=== PATIENT | male | born 1965 | race American Indian/Alaskan Native ===

== ENCOUNTER 2018-02-15 16:52 | Emergency (ER) | payer MEDICARE ==
[2018-02-15] MEDS ORDERED: ASPIRIN PO ONE (17:23)
[2018-02-15 18:01] LABS: Hematocrit 27.7 % (35.5-45.6); Hemoglobin 8.6 gm/dl (11.8-15.2); Mean Corpuscular HGB Conc 31 % (32-34)
[2018-02-15 18:08] LABS: Mean Corpuscular Hemoglobin 19 pg (28-32); Mean Corpuscular Volume 62 fl (84-94)
[2018-02-15 18:20] LABS: Calcium 8.6 mg/dL (8.4-10.2)
[2018-02-15] MEDS ORDERED: CATAPRES PO ONE (18:29)
[2018-02-15] MEDS: APRESOLINE IV ONE ×2 (18:33→21:25)
[2018-02-15 18:53] LABS: Chol/HDL Ratio 2.21 %
[2018-02-15 18:56] LABS: Total Cells Counted 100
[2018-02-15 18:57] LABS: Anisocytosis 1+
[2018-02-15 18:58] LABS: Ovalocytes 1+; Poikilocytosis 2+; Schistocytes 1+
[2018-02-15 19:00] LABS: Hypochromasia 2+; Target Cells 1+
[2018-02-15 19:01] LABS: Giant Platelets Few; Large Platelets Few
[2018-02-15 19:02] LABS: Platelet Estimate Consistent w Auto
[2018-02-15 19:07] LABS: Platelet Count 126 K/mm3 (140-440)
--- NOTE | 2018-02-15 19:30 | Emergency Department Report ---
HPI - General Chief Complaint: High BP Time Seen by Provider: 02/15/18 17:33 - HPI HPI: The patient is a 52-year-old male presents for evaluation of bleeding from dialysis's site and elevated blood pressure. The patient states that passing one hour prior to arrival he developed bleeding from his left dialysis fistula after completion of dialysis. He states that the bleeding was moderate in severity, constant for minutes, improved with pressure dressing. He denies trauma to the arm, pain, swelling, color change, chest pain, dyspnea, dizziness , headache, paresthesia, otherwise motor deficit, or focal neurological deficit. ED Past Medical Hx - Past Medical History Previous Medical History?: Yes Hx Hypertension: Yes Hx Diabetes: Yes Hx Renal Disease: Yes (dialysis) - Surgical History Past Surgical History?: Yes Additional Surgical History: hernia - Social History Smoking Status: Never Smoker Substance Use Type: None ED Review of Systems ROS: Stated complaint: POST DIALYSIS BLEED Other details as noted in HPI Constitutional: denies: fever ENT: denies: throat or neck pain Respiratory: denies: cough, shortness of breath Cardiovascular: denies: chest pain Endocrine: denies unexplained weight loss or gain Gastrointestinal: denies: abdominal pain, nausea Genitourinary: denies: dysuria Musculoskeletal: denies: leg swelling Skin: denies: rash Neurological: denies: headache Hematological/Lymphatic: denies: easy bleeding or easy bruising Psych: denies sadness or hopelessness Physical Exam - Physical Exam Vital Signs: Vital Signs 02/15/18 02/15/18 02/15/18 17:16 18:33 19:16 Temperature 98 F Pulse Rate 84 65 80 Respiratory 16 16 Rate Blood Pressure 225/116 205/107 Blood Pressure 190/106 [Left] O2 Sat by Pulse 96 96 Oximetry Physical Exam: General: well-nourished, well-developed, no acute distress Head: Normocephalic, atraumatic Eyes: normal sclera ENT: Mucous membranes are pink and moist Neck: trachea midline, neck supple, No neck stiffness, no cervical adenopathy Respiratory: Breath sounds equal bilaterally, no wheezing, rales, or rhonchi Cardio: S1 and S2 present, no murmurs, rubs, gallops, capillary refill is brisk Abdomen: Normoactive bowel sounds, soft abdomen, no rigidity, no guarding or rebound tenderness Chest WALL/Back: No tenderness to palpation of the chest wall, no CVA tenderness with percussion Musc: Pressure dressing to left arm present, dressing clean and dry and intact, no bleeding surrounding dressing Skin: No rash Neuro: no facial drooping, normal speech Psych: Normal affect ED Course Vital Signs 02/15/18 02/15/18 02/15/18 17:16 18:33 19:16 Temperature 98 F Pulse Rate 84 65 80 Respiratory 16 16 Rate Blood Pressure 225/116 205/107 Blood Pressure 190/106 [Left] O2 Sat by Pulse 96 96 Oximetry ED Medical Decision Making - Lab Data Result diagrams: 02/15/18 17:42 02/15/18 17:42 - Medical Decision Making The patient was seen and examined by myself. The patient is placed on a logistics analytics manager and continuous pulse ox. On initial evaluation, the patient was found to be in no distress. Evaluation orders were placed. The patient is given a tablet of clinic for his elevated blood pressure. There was also reassuring including normal potassium level. The patient reevaluated and found to remain with significantly elevated blood pressure. IV hydralazine was ordered for the patient. The patient is given IV hydralazine for elevated blood pressure. On reexamination the patient's blood pressure was found to decrease outside of range concerning for hypertensive emergency. The patient's pressure dressing was removed and the patient was found to have resolution of bleeding from dialysis fistula site. The patient is stable for discharge with outpatient follow-up. The patient is given follow-up and return instructions. The patient expressed understanding and agreed with the plan. The patient is discharged in stable condition. Critical care attestation.: If time is entered above; I have spent that time in minutes in the direct care of this critically ill patient, excluding procedure time. ED Disposition Clinical Impression: Hypertensive urgency, ESRD (end stage renal disease) on dialysis Hemorrhage of arteriovenous fistula Qualifiers: Encounter type: initial encounter Qualified Code(s): T82.838A - Hemorrhage due to vascular prosthetic devices, implants and grafts, initial encounter Disposition: - TO HOME OR SELFCARE Is pt being admited?: No Does the pt Need Aspirin: No Condition: Stable Instructions: Hypertension (ED), Hemodialysis (ED), Acute Wound Care (ED) Referrals: PRIMARY CARE, [Primary Care Provider] - 3-5 Days Time of Disposition: 19:30
[2018-02-15] MEDS ORDERED: APRESOLINE ONE (21:19)
[2018-02-15 22:20] VITALS: BP 147/68
== END 2018-02-15 23:08 | disposition home or self-care (01) ==
LOC: ED 16:52
DX: T82.838A Hemorrhage due to vascular prosthetic devices, implants and grafts, initial encounter (principal); E11.22 Type 2 diabetes mellitus with diabetic chronic kidney disease; I12.0 Hypertensive chronic kidney disease with stage 5 chronic kidney disease or end stage renal disease; N18.6 End stage renal disease; I16.0 Hypertensive urgency; Z99.2 Dependence on renal dialysis
CPT/HCPCS: 36415; 80048; 80061; 84484; 85007; 85025; 93005; 93010; 96374; 99284; J0360

== ENCOUNTER 2018-02-26 07:18 | Inpatient (IN) | payer MEDICARE ==
--- NOTE | 2018-02-26 07:36 | Emergency Department Report ---
ED Altered Mental Status HPI - General Chief Complaint: Hypoglycemia Stated Complaint: HIGH BLOOD SUGAR Time Seen by Provider: 02/26/18 07:18 Source: patient, EMS Mode of arrival: Stretcher Limitations: Altered Mental Status - History of Present Illness Initial Comments: She is a 52-year-old male that presents emergency room with complaints of hypoglycemia while at his [place] [facility]. Patient's nurse called EMS due to having a blood sugar of 40. EMS arrived on scene and blood sugar was 29. EMS unable to obtain an IV so oral glucose was given and glucose recheck was at 42. Patient is lethargic but arousable. Patient denies physical complaints. Patient denies chest pain/shortness of breath. Patient denies headache. Patient denies fever and chills. Patient states he is unaware of, units of insulin he was given the night prior. Per patient's medication list patient on 10 units of Lantus daily at bedtime. Medication and past medical history from [place] [facility] reviewed MD Complaint: confusion, decreased responsiveness -: Sudden Severity: mild Consistency of Symptoms: waxing and waning Context: diabetes Associated Symptoms: denies: chest pain, cough, diaphoresis, fever/chills, headaches, loss of appetite, malaise, nausea/vomiting, rash, seizure, shortness of breath, syncope, weakness, foul smelling urine, difficulty walking, diarrhea , incontinence Treatments Prior to Arrival: glucose, other pre-hosp med (glucagon) - Related Data Home Medications Medication Instructions Recorded Confirmed Last Taken Aspirin [Adult Low Dose Aspirin EC] 81 mg PO DAILY 02/26/18 02/26/18 Unknown Carvedilol [Coreg] 12.5 mg PO BID 02/26/18 02/26/18 Unknown Cinacalcet [Sensipar] 30 mg PO DAILY 02/26/18 02/26/18 Unknown Insulin Glargine,Hum.rec.anlog 10 units SUB-Q HS 02/26/18 02/26/18 Unknown [Lantus Solostar] Minoxidil [Loniten] 10 mg PO BID 02/26/18 02/26/18 Unknown Ondansetron [Zofran TAB] 8 mg PO Q8H 02/26/18 02/26/18 Unknown Sevelamer Carbonate [Renvela] 800 mg PO TIDWM 02/26/18 02/26/18 Unknown hydrALAZINE [Apresoline TAB] 100 mg PO TID 02/26/18 02/26/18 Unknown Allergies Allergy/AdvReac Type Severity Reaction Status Date / Time No Known Allergies Allergy Unverified 09/27/13 11:34 ED Review of Systems ROS: Stated complaint: HIGH BLOOD SUGAR Other details as noted in HPI Constitutional: denies: chills, fever Eyes: denies: eye pain, eye discharge, vision change ENT: denies: ear pain, throat pain Respiratory: denies: cough, shortness of breath, wheezing Cardiovascular: denies: chest pain, palpitations Endocrine: no symptoms reported Gastrointestinal: denies: abdominal pain, nausea, diarrhea Genitourinary: denies: urgency, dysuria Musculoskeletal: denies: back pain, joint swelling, arthralgia Skin: denies: rash, lesions Neurological: denies: headache, weakness, paresthesias Psychiatric: denies: anxiety, depression Hematological/Lymphatic: denies: easy bleeding, easy bruising ED Past Medical Hx - Past Medical History Previous Medical History?: Yes Hx Hypertension: Yes Hx Diabetes: Yes Hx Renal Disease: Yes (dialysis) - Surgical History Past Surgical History?: Yes Additional Surgical History: hernia - Family History Family history: no significant - Social History Smoking Status: Never Smoker Substance Use Type: None - Medications Home Medications: Home Medications Medication Instructions Recorded Confirmed Last Taken Type Aspirin [Adult Low Dose Aspirin EC] 81 mg PO DAILY 02/26/18 02/26/18 Unknown History Carvedilol [Coreg] 12.5 mg PO BID 02/26/18 02/26/18 Unknown History Cinacalcet [Sensipar] 30 mg PO DAILY 02/26/18 02/26/18 Unknown History Insulin Glargine,Hum.rec.anlog 10 units SUB-Q HS 02/26/18 02/26/18 Unknown History [Lantus Solostar] Minoxidil [Loniten] 10 mg PO BID 02/26/18 02/26/18 Unknown History Ondansetron [Zofran TAB] 8 mg PO Q8H 02/26/18 02/26/18 Unknown History Sevelamer Carbonate [Renvela] 800 mg PO TIDWM 02/26/18 02/26/18 Unknown History hydrALAZINE [Apresoline TAB] 100 mg PO TID 02/26/18 02/26/18 Unknown History ED Physical Exam - General Limitations: No Limitations General appearance: alert, in no apparent distress, lethargic (but arousable and answers questions appropriately) - Head Head exam: Present: atraumatic, normocephalic - Eye Eye exam: Present: normal appearance - ENT ENT exam: Present: mucous membranes moist - Neck Neck exam: Present: normal inspection - Respiratory Respiratory exam: Present: normal lung sounds bilaterally. Absent: respiratory distress - Cardiovascular Cardiovascular Exam: Present: regular rate, normal rhythm. Absent: systolic murmur, diastolic murmur, rubs, gallop - GI/Abdominal GI/Abdominal exam: Present: soft, normal bowel sounds - Rectal Rectal exam: Present: deferred - Extremities Exam Extremities exam: Present: normal inspection - Back Exam Back exam: Present: normal inspection - Neurological Exam Neurological exam: Present: oriented X3 - Psychiatric Psychiatric exam: Present: normal affect, normal mood - Skin Skin exam: Present: warm, dry, intact, normal color. Absent: rash - Assessment Assessment Interval: Baseline - Level of Consciousness 1a. Level of Consciousness: alert - LOC Questions 1b. LOC Questions: answers correctly - LOC Command 1c. LOC Commands: performs tasks correctly - Best Gaze 2. Best Gaze: normal - Visual 3. Visual: no visual loss - Facial Palsy 4. Facial Palsy: normal symmetrical movement - Motor Arm 5b. Motor Arm Right: no drift 5a. Motor Arm Left: no drift - Motor Leg 6a. Motor Leg Left: no drift 6b. Motor Leg Right: no drift - Limb Ataxia 7. Limb Ataxia: absent - Sensory 8. Sensory: normal - Best Language 9. Best Language: no aphasia - Dysarthria 10. Dysarthria: normal - Extinction and Inattention 11. Extinction/Inattention: no abnormality - Scoring Total Score: 0 Stroke Severity: No Stroke Symptoms ED Course Vital Signs 02/26/18 02/26/18 02/26/18 07:24 07:38 08:00 Temperature 96.8 F L Pulse Rate 78 73 Respiratory 16 16 12 Rate Blood Pressure 155/80 155/80 O2 Sat by Pulse 100 100 100 Oximetry 02/26/18 02/26/18 09:52 10:00 Temperature Pulse Rate 73 Respiratory 9 L Rate Blood Pressure 147/73 163/83 O2 Sat by Pulse 95 97 Oximetry - Reevaluation(s) Reevaluation #1: Right IJ IV access obtained and 1 amp of D50 with given. Patient's blood sugar 15 minutes later 98. We'll continue to monitor patient's glucose and treat when necessary. Patient is awake and alert at this time. 02/26/18 07:34 Reevaluation #2: Pacing answering questions appropriately. Sugar is slowly dropping. We will start D5 half normal saline drip and continue to monitor sugars 02/26/18 08:37 Reevaluation #3: Sugars have stabilized with D5 drip. We'll consult hospitalist for admission. Plan of care discussed with patient. Patient agrees with plan of care. Nephrology will be consulted for dialysis. 02/26/18 09:54 - Consultations Consultation #1: Dr. Cook consulted for admission. Dr. Cook agrees to admission. Hospitalist to assume care. 02/26/18 09:00 Consultation #2: Dr. Bedolla consulted for hemodialysis, agrees to consult and will see patient. 02/26/18 09:55 02/26/18 09:55 - Lab Data Result diagrams: 02/26/18 07:29 02/26/18 07:29 Lab Results 02/26/18 02/26/18 02/26/18 Range/Units 07:24 07:29 07:29 WBC 5.2 (4.5-11.0) K/mm3 RBC 4.52 (3.65-5.03) M/mm3 Hgb 8.9 L (11.8-15.2) gm/dl Hct 28.0 L (35.5-45.6) % MCV 62 L (84-94) fl MCH 20 L (28-32) pg MCHC 32 (32-34) % RDW 24.0 H (13.2-15.2) % Plt Count 148 (140-440) K/mm3 Lymph % (Auto) Chamfering Machine Operator Baso % (Auto) Chamfering Machine Operator Add Manual Diff Complete Total Counted 100 Seg Neutrophils % Chamfering Machine Operator Seg Neuts % (Manual) 83.0 H (40.0-70.0) % Band Neutrophils % 0 % Lymphocytes % (Manual) 9.0 L (13.4-35.0) % Reactive Lymphs % (Man) 0 % Monocytes % (Manual) 7.0 (0.0-7.3) % Eosinophils % (Manual) 0 (0.0-4.3) % Basophils % (Manual) 0 (0.0-1.8) % Metamyelocytes % 0 % Myelocytes % 0 % Promyelocytes % 1.0 % Blast Cells % 0 % Nucleated RBC % Not Reportable Seg Neutrophils # Man 4.3 (1.8-7.7) K/mm3 Band Neutrophils # 0.0 K/mm3 Lymphocytes # (Manual) 0.5 L (1.2-5.4) K/mm3 Abs React Lymphs (Man) 0.0 K/mm3 Monocytes # (Manual) 0.4 (0.0-0.8) K/mm3 Eosinophils # (Manual) 0.0 (0.0-0.4) K/mm3 Basophils # (Manual) 0.0 (0.0-0.1) K/mm3 Metamyelocytes # 0.0 K/mm3 Myelocytes # 0.0 K/mm3 Promyelocytes # 0.1 K/mm3 Blast Cells # 0.0 K/mm3 WBC Morphology Not Reportable Hypersegmented Neuts Not Reportable Hyposegmented Neuts Not Reportable Hypogranular Neuts Not Reportable Smudge Cells Not Reportable Toxic Granulation Not Reportable Toxic Vacuolation Not Reportable Dohle Bodies Not Reportable Pelger-Huet Anomaly Not Reportable Juan Jose Rods Not Reportable Platelet Estimate Consistent w auto Clumped Platelets Not Reportable Plt Clumps, EDTA Not Reportable Large Platelets Not Reportable Giant Platelets Not Reportable Platelet Satelliting Not Reportable Plt Morphology Comment Not Reportable RBC Morphology Not Reportable Dimorphic RBCs Not Reportable Polychromasia Not Reportable Hypochromasia 2+ Poikilocytosis 1+ Anisocytosis 1+ Microcytosis 2+ Macrocytosis Not Reportable Spherocytes Not Reportable Pappenheimer Bodies Not Reportable Sickle Cells Not Reportable Target Cells Few Tear Drop Cells Not Reportable Ovalocytes Few Helmet Cells Not Reportable Centeno-Tenkiller Bodies Not Reportable [place] Rings Not Reportable Donnell Cells Not Reportable Bite Cells Not Reportable Crenated Cell Not Reportable Elliptocytes Few Acanthocytes (Spur) Not Reportable Rouleaux Not Reportable Hemoglobin C Crystals Not Reportable Schistocytes Rare Malaria parasites Not Reportable Jordan Bodies Not Reportable Hem Pathologist Commnt No PT 15.4 H (12.2-14.9) Sec. INR 1.16 H (0.87-1.13) APTT 31.0 (24.2-36.6) Sec. Sodium (137-145) mmol/L Potassium (3.6-5.0) mmol/L Chloride (98-107) mmol/L Carbon Dioxide (22-30) mmol/L Anion Gap mmol/L BUN (9-20) mg/dL Creatinine (0.8-1.5) mg/dL Estimated GFR ml/min BUN/Creatinine Ratio % Glucose (75-100) mg/dL POC Glucose < 40 L (70-105) Lactic Acid (0.7-2.0) mmol/L Calcium (8.4-10.2) mg/dL Total Bilirubin (0.1-1.2) mg/dL AST (5-40) units/L ALT (7-56) units/L Alkaline Phosphatase (35-129) units/L Total Protein (6.3-8.2) g/dL Albumin (3.9-5) g/dL Albumin/Globulin Ratio % 02/26/18 02/26/18 02/26/18 Range/Units 07:29 07:29 07:35 WBC (4.5-11.0) K/mm3 RBC (3.65-5.03) M/mm3 Hgb (11.8-15.2) gm/dl Hct (35.5-45.6) % MCV (84-94) fl MCH (28-32) pg MCHC (32-34) % RDW (13.2-15.2) % Plt Count (140-440) K/mm3 Lymph % (Auto) Baso % (Auto) Add Manual Diff Total Counted Seg Neutrophils % Seg Neuts % (Manual) (40.0-70.0) % Band Neutrophils % % Lymphocytes % (Manual) (13.4-35.0) % Reactive Lymphs % (Man) % Monocytes % (Manual) (0.0-7.3) % Eosinophils % (Manual) (0.0-4.3) % Basophils % (Manual) (0.0-1.8) % Metamyelocytes % % Myelocytes % % Promyelocytes % % Blast Cells % % Nucleated RBC % Seg Neutrophils # Man (1.8-7.7) K/mm3 Band Neutrophils # K/mm3 Lymphocytes # (Manual) (1.2-5.4) K/mm3 Abs React Lymphs (Man) K/mm3 Monocytes # (Manual) (0.0-0.8) K/mm3 Eosinophils # (Manual) (0.0-0.4) K/mm3 Basophils # (Manual) (0.0-0.1) K/mm3 Metamyelocytes # K/mm3 Myelocytes # K/mm3 Promyelocytes # K/mm3 Blast Cells # K/mm3 WBC Morphology Hypersegmented Neuts Hyposegmented Neuts Hypogranular Neuts Smudge Cells Toxic Granulation Toxic Vacuolation Dohle Bodies Pelger-Huet Anomaly Juan Jose Rods Platelet Estimate Clumped Platelets Plt Clumps, EDTA Large Platelets Giant Platelets Platelet Satelliting Plt Morphology Comment RBC Morphology Dimorphic RBCs Polychromasia Hypochromasia Poikilocytosis Anisocytosis Microcytosis Macrocytosis Spherocytes Pappenheimer Bodies Sickle Cells Target Cells Tear Drop Cells Ovalocytes Helmet Cells Centeno-Tenkiller Bodies [place] Rings Warren Cells Bite Cells Crenated Cell Elliptocytes Acanthocytes (Spur) Rouleaux Hemoglobin C Crystals Schistocytes Malaria parasites Jordan Bodies Hem Pathologist Commnt PT (12.2-14.9) Sec. INR (0.87-1.13) APTT (24.2-36.6) Sec. Sodium 132 L (137-145) mmol/L Potassium 5.5 H (3.6-5.0) mmol/L Chloride 93.1 L (98-107) mmol/L Carbon Dioxide 26 (22-30) mmol/L Anion Gap 18 mmol/L BUN 51 H (9-20) mg/dL Creatinine 9.6 H (0.8-1.5) mg/dL Estimated GFR 7 ml/min BUN/Creatinine Ratio 5 % Glucose 44 L (75-100) mg/dL POC Glucose 98 (70-105) Lactic Acid 0.80 (0.7-2.0) mmol/L Calcium 8.7 (8.4-10.2) mg/dL Total Bilirubin 0.70 (0.1-1.2) mg/dL AST 16 (5-40) units/L ALT 14 (7-56) units/L Alkaline Phosphatase 92 (35-129) units/L Total Protein 7.4 (6.3-8.2) g/dL Albumin 4.0 (3.9-5) g/dL Albumin/Globulin Ratio 1.2 % 02/26/18 02/26/18 Range/Units 08:05 08:35 WBC (4.5-11.0) K/mm3 RBC (3.65-5.03) M/mm3 Hgb (11.8-15.2) gm/dl Hct (35.5-45.6) % MCV (84-94) fl MCH (28-32) pg MCHC (32-34) % RDW (13.2-15.2) % Plt Count (140-440) K/mm3 Lymph % (Auto) Baso % (Auto) Add Manual Diff Total Counted Seg Neutrophils % Seg Neuts % (Manual) (40.0-70.0) % Band Neutrophils % % Lymphocytes % (Manual) (13.4-35.0) % Reactive Lymphs % (Man) % Monocytes % (Manual) (0.0-7.3) % Eosinophils % (Manual) (0.0-4.3) % Basophils % (Manual) (0.0-1.8) % Metamyelocytes % % Myelocytes % % Promyelocytes % % Blast Cells % % Nucleated RBC % Seg Neutrophils # Man (1.8-7.7) K/mm3 Band Neutrophils # K/mm3 Lymphocytes # (Manual) (1.2-5.4) K/mm3 Abs React Lymphs (Man) K/mm3 Monocytes # (Manual) (0.0-0.8) K/mm3 Eosinophils # (Manual) (0.0-0.4) K/mm3 Basophils # (Manual) (0.0-0.1) K/mm3 Metamyelocytes # K/mm3 Myelocytes # K/mm3 Promyelocytes # K/mm3 Blast Cells # K/mm3 WBC Morphology Hypersegmented Neuts Hyposegmented Neuts Hypogranular Neuts Smudge Cells Toxic Granulation Toxic Vacuolation Dohle Bodies Pelger-Huet Anomaly Juan Jose Rods Platelet Estimate Clumped Platelets Plt Clumps, EDTA Large Platelets Giant Platelets Platelet Satelliting Plt Morphology Comment RBC Morphology Dimorphic RBCs Polychromasia Hypochromasia Poikilocytosis Anisocytosis Microcytosis Macrocytosis Spherocytes Pappenheimer Bodies Sickle Cells Target Cells Tear Drop Cells Ovalocytes Helmet Cells Centeno-Tenkiller Bodies [place] Rings Donnell Cells Bite Cells Crenated Cell Elliptocytes Acanthocytes (Spur) Rouleaux Hemoglobin C Crystals Schistocytes Malaria parasites Jordan Bodies Hem Pathologist Commnt PT (12.2-14.9) Sec. INR (0.87-1.13) APTT (24.2-36.6) Sec. Sodium (137-145) mmol/L Potassium (3.6-5.0) mmol/L Chloride (98-107) mmol/L Carbon Dioxide (22-30) mmol/L Anion Gap mmol/L BUN (9-20) mg/dL Creatinine (0.8-1.5) mg/dL Estimated GFR ml/min BUN/Creatinine Ratio % Glucose (75-100) mg/dL POC Glucose 90 84 (70-105) Lactic Acid (0.7-2.0) mmol/L Calcium (8.4-10.2) mg/dL Total Bilirubin (0.1-1.2) mg/dL AST (5-40) units/L ALT (7-56) units/L Alkaline Phosphatase (35-129) units/L Total Protein (6.3-8.2) g/dL Albumin (3.9-5) g/dL Albumin/Globulin Ratio % - Medical Decision Making She has a 52-year-old male presents to emergency with hypoglycemia due to unknown cause. Patient is found to have low blood sugar and was treated with D50 and a D5 half-normal saline drip sugars have stabilized. Patient's labs were significant for high creatinine and elevated potassium. Patient will be admitted to the hospitalist service for further evaluation and treatment as well as Dr. Bedolla master fire control technician was consulted for end-stage renal disease and hemodialysis. - Differential Diagnosis med reaction. Hypoglycemia. Miss dosing of insulin. Missed meals. Critical Care Time: Yes Critical care attestation.: If time is entered above; I have spent that time in minutes in the direct care of this critically ill patient, excluding procedure time. Critical Care Time: 40 minutes for cc time ED Disposition Clinical Impression: Hypoglycemia, Lethargy, ESRD (end stage renal disease) on dialysis, Hyperkalemia Disposition: OP ADMIT IP TO THIS HOSP Is pt being admited?: Yes Does the pt Need Aspirin: No Condition: Critical Time of Disposition: 09:56
[2018-02-26] MEDS ORDERED: D50W (25GM) Syringe IV ONE (07:37)
[2018-02-26 07:40] LABS: Hemoglobin 8.9 gm/dl (11.8-15.2); Mean Corpuscular HGB Conc 32 % (32-34); Platelet Count 148 K/mm3 (140-440); Red Blood Count 4.52 M/mm3 (3.65-5.03)
[2018-02-26 07:44] LABS: Mean Corpuscular Hemoglobin 20 pg (28-32); Mean Corpuscular Volume 62 fl (84-94)
[2018-02-26 07:51] LABS: INR 1.16 (0.87-1.13)
[2018-02-26 07:54] LABS: Calcium 8.7 mg/dL (8.4-10.2)
[2018-02-26] MEDS ORDERED: D5/0.45NS 1,000 ML IV ONE (08:39)
[2018-02-26] MEDS ORDERED: D5/0.45NS 1,000 ML IV SCH (09:00)
[2018-02-26 09:14] LABS: Anisocytosis 1+; Basophils % (Manual) 0 % (0.0-1.8); Eosinophils % (Manual) 0 % (0.0-4.3); Poikilocytosis 1+; Promyelocytes # (Manual) 0.1 K/mm3; Total Cells Counted 100
[2018-02-26 09:15] LABS: Hypochromasia 2+; Ovalocytes Few; Platelet Estimate Consistent w Auto; Schistocytes Rare; Target Cells Few
--- NOTE | 2018-02-26 12:15 | Consultation ---
History of Present Illness - Reason for Consult Consult date: 02/26/18 end stage renal disease - History of Present Illness Mr. Nunez is a 52yo with ESRD on HD MWF who presented to the ED from his SNF w/ AMS. Blood sugar was 29 in field - he was given glucose tablet due to lack of IV access. Upon arrival to the ED, initial glucose was <40. He receives Lantus at night. He has been admitted for further evaluation and management. Nephrology consulted for management of ESRD. Past History Past Medical History: diabetes, ESRD, hypertension Past Surgical History: Other (KAREEM TRUONG) Social history: other (Resides at [facility]) Family history: no significant family history Medications and Allergies Allergies Allergy/AdvReac Type Severity Reaction Status Date / Time No Known Allergies Allergy Unverified 09/27/13 11:34 Home Medications Medication Instructions Recorded Confirmed Last Taken Type Aspirin [Adult Low Dose Aspirin EC] 81 mg PO DAILY 02/26/18 02/26/18 Unknown History Carvedilol [Coreg] 12.5 mg PO BID 02/26/18 02/26/18 Unknown History Cinacalcet [Sensipar] 30 mg PO DAILY 02/26/18 02/26/18 Unknown History Insulin Glargine,Hum.rec.anlog 10 units SUB-Q HS 02/26/18 02/26/18 Unknown History [Lantus Solostar] Minoxidil [Loniten] 10 mg PO BID 02/26/18 02/26/18 Unknown History Ondansetron [Zofran TAB] 8 mg PO Q8H 02/26/18 02/26/18 Unknown History Sevelamer Carbonate [Renvela] 800 mg PO TIDWM 02/26/18 02/26/18 Unknown History hydrALAZINE [Apresoline TAB] 100 mg PO TID 02/26/18 02/26/18 Unknown History Active Meds: Active Medications Dextrose/Sodium Chloride (D5/0.45ns) 1,000 mls @ 75 mls/hr IV DIRECT ANABELLA Last Admin: 02/26/18 08:45 Dose: 75 mls/hr Review of Systems All systems: negative Exam - Vital Signs Vital signs: Vital Signs Temp Pulse Resp BP Pulse Ox 96.8 F L 78 16 155/80 100 02/26/18 07:24 02/26/18 07:24 02/26/18 07:24 02/26/18 07:24 02/26/18 07:24 - General Appearance General appearance: well-developed, well-nourished EENT: ATNC Respiratory: Clear to Ascultation Heart: regular, S1S2 Gastrointestinal: Present: normal. Absent: tenderness, distended Integumentary: no rash, warm and dry Neurologic: other (lethargic) Musculoskeletal: Present: other (no edema) Psychiatric: cooperative Results - Lab Results 02/26/18 07:29 02/26/18 07:29 Most recent lab results Calcium 8.7 mg/dL (8.4-10.2) 02/26/18 07:29 Assessment and Plan Impression: * ESRD on HD MWF * Hypoglycemia * Hyperkalemia * Hypertension * Hyponatremia, mild * Anemia secondary to ESRD * Secondary hyperparathyroidism Plan: * Hemodialysis today - continue MWF * UF as tolerated * Stop D5 1/2 NS; will start D10 gtt at 50ml/hour * Continue antiHTN medications * Epogen TIW prn * Renal diet * Binders with meals
[2018-02-26] MEDS ORDERED: D50W (25GM) Syringe IV PRN (12:52)
--- NOTE | 2018-02-26 13:07 | History and Physical Report ---
History of Present Illness Date of examination: 02/26/18 Date of admission: 02/26/18 09:53 Chief complaint: AMS History of present illness: Mr. Nunez is a 52 yo man from [facility] with a history of ESRD on hemodialysis, hypertersion, AOCD, and IDDM type 2 who presents to [facility] via EMS for AMS, lethargy after being found to have hypoglycemia. He takes 10 units of Lantus at night but he is unsure how much Lantus he was given last night. He was given Glucagon prior to arrival and blood glucose keeps failing hence the admission. He is from [place], [place] and has been in the area for approximately 2 years. He was recently admitted to [facility] and sent to [facility]. [place] has been in the [place] for 1-2 weeks now. PMH: as hpi, Diastolic dysfunction with estimated EF 55-60%, moderate pulmonary hypertension, moderate pericardial effusion on 2D ECHO done on 01/04/15 PSH: left inguinal hernia repair, bilateral cataracts removed, Left AV fistula SH: Denies tob/etoh/drug abuse, he is but is estranged, he wants sister Prashanth Nunez to make medical decision if he is unable to do so. FH: Denies, "I don't know" ROS: Constitutional: denies: fever ENT: denies: throat or neck pain Respiratory: denies: cough, shortness of breath Cardiovascular: denies: chest pain Endocrine: denies unexplained weight loss or gain Gastrointestinal: denies: abdominal pain, nausea Genitourinary: denies: dysuria Rectal: denies no incontinence, no bleeding, no itching, no discharge Musculoskeletal: +swelling, myaglia, muscle weakness Skin: denies: rash Neurological: denies: headache Hematological/Lymphatic: denies: easy bleeding or easy bruising Allergic/Immunologic: no urticaria, no allergic rhinitis, no anaphylaxis Psych: denies sadness or hopelessness, SI/HI Medications and Allergies Allergies Allergy/AdvReac Type Severity Reaction Status Date / Time No Known Allergies Allergy Unverified 09/27/13 11:34 Home Medications Medication Instructions Recorded Confirmed Last Taken Type Aspirin [Adult Low Dose Aspirin EC] 81 mg PO DAILY 02/26/18 02/26/18 Unknown History Carvedilol [Coreg] 12.5 mg PO BID 02/26/18 02/26/18 Unknown History Cinacalcet [Sensipar] 30 mg PO DAILY 02/26/18 02/26/18 Unknown History Insulin Glargine,Hum.rec.anlog 10 units SUB-Q HS 02/26/18 02/26/18 Unknown History [Lantus Solostar] Minoxidil [Loniten] 10 mg PO BID 02/26/18 02/26/18 Unknown History Ondansetron [Zofran TAB] 8 mg PO Q8H 02/26/18 02/26/18 Unknown History Sevelamer Carbonate [Renvela] 800 mg PO TIDWM 02/26/18 02/26/18 Unknown History hydrALAZINE [Apresoline TAB] 100 mg PO TID 02/26/18 02/26/18 Unknown History Active Meds: Active Medications Aspirin (Halfprin Ec) 81 mg PO DAILY [facility] Carvedilol (Coreg) 12.5 mg PO BID [facility] Cinacalcet (Sensipar) 30 mg PO DAILY [facility] Dextrose (D50w (25gm) Syringe) 50 ml IV PRN PRN PRN Reason: Hypoglycemia Hydralazine HCl (Apresoline) 100 mg PO TID [facility] Dextrose/Sodium Chloride (D5/0.45ns) 1,000 mls @ 75 mls/hr IV DIRECT ANABELLA Last Admin: 02/26/18 08:45 Dose: 75 mls/hr Insulin Human Lispro (Humalog) 0 unit SUB-Q Q4H [facility]; Protocol Minoxidil (Loniten) 10 mg PO BID ANABELLA Miscellaneous Medication (Sevelamer Carbonate [Renvela]) 800 mg PO TIDWM [facility] Exam - Physical Exam Narrative exam: GEN: WDWN, NAD, Awake, Alert, Orientated x 3 HEENT: NCAT, EOMI, PERRL, OP Clear NECK: supple, no adenopathy, no thyromegaly, no JVD CVS/HEART: RRR, normal S1S2, pulses present bilaterally CHEST/LUNGS: diminished bs bilateral, Symmetrical chest expansion, good air entry bilaterally GI/Abdomen: soft, NTND, good bowel sounds, no guarding or rebound /Bladder: no suprapubic tenderness, no CVA or paraspinal tenderness EXT/Skin: ble leg edema, no obvious rash MSK: FROM x 4 Neuro: CN 2-12 grossly intact, no new focal deficits Psych: calm - Constitutional Vitals: Temp Pulse Resp BP Pulse Ox 96.8 F L 73 9 L 163/83 97 02/26/18 07:24 02/26/18 10:00 02/26/18 10:00 02/26/18 10:00 02/26/18 10:00 Results - Labs CBC & Chem 7: 02/26/18 07:29 02/26/18 07:29 Labs: Abnormal lab results 02/26/18 02/26/18 02/26/18 Range/Units 07:24 07:29 07:29 Hgb 8.9 L (11.8-15.2) gm/dl Hct 28.0 L (35.5-45.6) % MCV 62 L (84-94) fl MCH 20 L (28-32) pg RDW 24.0 H (13.2-15.2) % Seg Neuts % (Manual) 83.0 H (40.0-70.0) % Lymphocytes % (Manual) 9.0 L (13.4-35.0) % Lymphocytes # (Manual) 0.5 L (1.2-5.4) K/mm3 PT 15.4 H (12.2-14.9) Sec. INR 1.16 H (0.87-1.13) Sodium (137-145) mmol/L Potassium (3.6-5.0) mmol/L Chloride (98-107) mmol/L BUN (9-20) mg/dL Creatinine (0.8-1.5) mg/dL Glucose (75-100) mg/dL POC Glucose < 40 L (70-105) 02/26/18 Range/Units 07:29 Hgb (11.8-15.2) gm/dl Hct (35.5-45.6) % MCV (84-94) fl MCH (28-32) pg RDW (13.2-15.2) % Seg Neuts % (Manual) (40.0-70.0) % Lymphocytes % (Manual) (13.4-35.0) % Lymphocytes # (Manual) (1.2-5.4) K/mm3 PT (12.2-14.9) Sec. INR (0.87-1.13) Sodium 132 L (137-145) mmol/L Potassium 5.5 H (3.6-5.0) mmol/L Chloride 93.1 L (98-107) mmol/L BUN 51 H (9-20) mg/dL Creatinine 9.6 H (0.8-1.5) mg/dL Glucose 44 L (75-100) mg/dL POC Glucose (70-105) Assessment and Plan Mr. Nunez is a 52 yo man from [facility] with a history of ESRD on hemodialysis MWF, hypertersion, AOCD, Diastolic dysfunction with estimated EF 55 -60%, moderate pulmonary hypertension, moderate pericardial effusion on 2D ECHO done on 01/04/15 and IDDM type 2 who presents to [facility] via EMS for AMS, lethargy due to hypoglycemia. He takes 10 units of Lantus at night but he is unsure how much Lantus he was given last night. He was given Glucagon prior to arrival and blood glucose keeps dropping, hence the admission. He is from [place], [place] and has been in the area for approximately 2 years. He was recently admitted to [facility] and sent to [facility]. [place] the [place] for 1[place]2 [place] now. -AMS due to acute metabolic encephalopathy from hypoglycemia: hold Lantus, continue d5 additive solution, careful with ESRD -Hypoglycemia most likely from the Lantus: hold Lantus, accucheck q4hr, ssi for now -ESRD needing hemodialysis: Nephrology consulted -Hyperkalemia: HD should help, repeat bmp am -AOCD: continue hemodialysis, repeat cbc -IDDM type 2: add ssi, hold lantus, accucheck q4hrs, renal diet -DVT prophylaxis: sq heparin -Advance care planning: full code, he doesn't want estranged to make any decision from him, he wants sister Terry
[2018-02-26] MEDS ORDERED: NACL 0.9% 100 ML IV PRN ×2 (13:37→18:28)
[2018-02-26] MEDS ORDERED: D10W 1,000 ML IV SCH (14:00)
[2018-02-26] MEDS: HumaLOG SUB-Q SCH ×2 (15:24→23:26)
[2018-02-26] MEDS: APRESOLINE PO SCH ×2 (15:24→20:34)
[2018-02-26] MEDS ORDERED: HumaLOG SUB-Q SCH (16:30)
[2018-02-26] MEDS ORDERED: NON-FORMULARY (Sevelamer Carbonate [Renvela] 800 MG) PO SCH (17:00)
[2018-02-26] MEDS ORDERED: NACL 0.9 (PRIMING MACHINE ONLY DIALYSIS) MC ONE (18:16)
[2018-02-26 19:35] LABS: Hepatitis A Antibody IgM Non-Reactive (NonReactive); Hepatitis B Core IgM Non-Reactive (NonReactive); Hepatitis B Surface Antigen Non-Reactive (Negative); Hepatitis C Virus Antibody Non-Reactive (NonReactive)
[2018-02-26] MEDS: RENVELA PO SCH (20:34)
[2018-02-26] MEDS: LONITEN PO SCH (23:23)
[2018-02-26] MEDS: COREG PO SCH (23:23)
[2018-02-27] MEDS: HumaLOG SUB-Q SCH ×6 (03:19→21:08)
[2018-02-27 05:35] LABS: Hematocrit 25.5 % (35.5-45.6); Mean Corpuscular HGB Conc 31 % (32-34); Platelet Count 137 K/mm3 (140-440); Red Blood Count 4.18 M/mm3 (3.65-5.03)
[2018-02-27 05:36] LABS: Mean Corpuscular Hemoglobin 19 pg (28-32); Mean Corpuscular Volume 61 fl (84-94); Red Cell Distribution Width 23.3 % (13.2-15.2)
[2018-02-27 05:50] LABS: Calcium 8.7 mg/dL (8.4-10.2)
[2018-02-27] MEDS: SENSIPAR PO SCH (09:52)
[2018-02-27] MEDS: RENVELA PO SCH ×3 (09:52→17:22)
[2018-02-27] MEDS: LONITEN PO SCH ×2 (09:52→21:08)
[2018-02-27] MEDS: APRESOLINE PO SCH ×3 (09:53→21:07)
[2018-02-27] MEDS: HALFPRIN EC PO SCH (09:53)
[2018-02-27] MEDS: COREG PO SCH ×2 (09:53→21:07)
--- NOTE | 2018-02-27 10:58 | Progress Note ---
Assessment and Plan Impression: * ESRD on HD MWF * Hypoglycemia * Hyperkalemia * Hypertension * Hyponatremia, mild * Anemia secondary to ESRD * Secondary hyperparathyroidism Plan: * Patient is s/p HD yesterday; no acute need for dialysis today * Continue MWF HD schedule * UF as tolerated * Cont D10 gtt at 50ml/hour * Continue antiHTN medications * Epogen TIW prn * Renal diet * Binders with meals Subjective Date of service: 02/27/18 Interval history: Patient has no complaints. More alert this AM Objective - Vital Signs Vital signs: Vital Signs - 12hr 02/26/18 02/26/18 02/27/18 23:10 23:23 06:23 Temperature 98.5 F 98.4 F Pulse Rate 96 H 96 H 91 H Respiratory 20 20 Rate Blood Pressure 173/84 173/84 147/68 O2 Sat by Pulse 98 97 Oximetry 02/27/18 09:53 Temperature Pulse Rate Respiratory Rate Blood Pressure 145/72 O2 Sat by Pulse Oximetry - General Appearance General appearance: well-developed, well-nourished EENT: ATNC Respiratory: Present: Clear to Ascultation Cardiology: regular, S1S2 Gastrointestinal: normal, no tenderness, no distended Integumentary: warm and dry Neurologic: other (oriented to person, place, year) Musculoskeletal: other (no edema) Psychiatric: cooperative - Lab 02/27/18 04:58 02/27/18 04:58 Most recent lab results Calcium 8.7 mg/dL (8.4-10.2) 02/27/18 04:58
--- NOTE | 2018-02-27 15:58 | Progress Note ---
Assessment and Plan Assessment and plan: Mr. Nunez is a 52 yo man from [facility] with a history of ESRD on hemodialysis MWF, hypertersion, AOCD, Diastolic dysfunction with estimated EF 55 -60%, moderate pulmonary hypertension, moderate pericardial effusion on 2D ECHO done on 01/04/15 and IDDM type 2 who presents to [facility] via EMS for AMS, lethargy due to hypoglycemia. He takes 10 units of Lantus at night but he is unsure how much Lantus he was given last night. He was given Glucagon prior to arrival and blood glucose keeps dropping, hence the admission. He is from [place], [place] and has been in the area for approximately 2 years. He was recently admitted to [facility] and sent to [facility]. [place] in the [place] 1[place]2 [place] now. -AMS due to acute metabolic encephalopathy from hypoglycemia: hold Lantus, continue d5 additive solution, careful with ESRD -Hypoglycemia most likely from the Lantus: hold Lantus, accucheck q4hr, ssi for now, blood glucose this morning D10 was ordered but not started, current BG 97 on D5. -ESRD needing hemodialysis: Nephrology consulted -Hyperkalemia: HD should help, repeat bmp am -AOCD: continue hemodialysis, repeat cbc -IDDM type 2: add ssi, hold lantus, accucheck q4hrs, renal diet -DVT prophylaxis: sq heparin -Advance care planning: full code, he doesn't want estranged to make any decision from him, he wants sister Terry History Interval history: Patient was seen and examined. Follow-up on current diagnosis of hypoglycemia. Overnight uneventful. Patient denies any chest pain, shortness breath, nausea/ vomiting or severe headaches. Imaging, nursing note, chart, labs and old chart reviewed. Discussed with patient. Hospitalist Physical - Physical exam Narrative exam: GEN: WDWN, NAD, Awake, Alert, Orientated x 3 HEENT: NCAT, EOMI, PERRL, OP Clear NECK: supple, no adenopathy, no thyromegaly, no JVD CVS/HEART: RRR, normal S1S2, pulses present bilaterally CHEST/LUNGS: diminished bs bilateral, Symmetrical chest expansion, good air entry bilaterally GI/Abdomen: soft, NTND, good bowel sounds, no guarding or rebound /Bladder: no suprapubic tenderness, no CVA or paraspinal tenderness EXT/Skin: ble leg edema, no obvious rash MSK: FROM x 4 Neuro: CN 2-12 grossly intact, no new focal deficits Psych: calm - Constitutional Vitals: Temp Pulse Resp BP Pulse Ox 98.5 F 84 18 109/55 95 02/27/18 11:12 02/27/18 11:12 02/27/18 11:12 02/27/18 11:12 02/27/18 11:12 Results - Labs CBC & Chem 7: 02/27/18 04:58 02/27/18 04:58 Labs: Laboratory Last Values WBC 2.4 K/mm3 (4.5-11.0) L 02/27/18 04:58 RBC 4.18 M/mm3 (3.65-5.03) 02/27/18 04:58 Hgb 8.0 gm/dl (11.8-15.2) L 02/27/18 04:58 Hct 25.5 % (35.5-45.6) L 02/27/18 04:58 MCV 61 fl (84-94) L 02/27/18 04:58 MCH 19 pg (28-32) L 02/27/18 04:58 MCHC 31 % (32-34) L 02/27/18 04:58 RDW 23.3 % (13.2-15.2) H 02/27/18 04:58 Plt Count 137 K/mm3 (140-440) L 02/27/18 04:58 Lymph % (Auto) [place] 02/26/18 07:29 Baso % (Auto) [place] 02/26/18 07:29 Add Manual Diff Complete 02/26/18 07:29 Total Counted 100 02/26/18 07:29 Seg Neutrophils % [place] 02/26/18 07:29 Seg Neuts % (Manual) 83.0 % (40.0-70.0) H 02/26/18 07:29 Band Neutrophils % 0 % 02/26/18 07:29 Lymphocytes % (Manual) 9.0 % (13.4-35.0) L 02/26/18 07:29 Reactive Lymphs % (Man) 0 % 02/26/18 07:29 Monocytes % (Manual) 7.0 % (0.0-7.3) 02/26/18 07:29 Eosinophils % (Manual) 0 % (0.0-4.3) 02/26/18 07:29 Basophils % (Manual) 0 % (0.0-1.8) 02/26/18 07:29 Metamyelocytes % 0 % 02/26/18 07:29 Myelocytes % 0 % 02/26/18 07:29 Promyelocytes % 1.0 % 02/26/18 07:29 Blast Cells % 0 % 02/26/18 07:29 Nucleated RBC % Not Reportable 02/26/18 07:29 Seg Neutrophils # Man 4.3 K/mm3 (1.8-7.7) 02/26/18 07:29 Band Neutrophils # 0.0 K/mm3 02/26/18 07:29 Lymphocytes # (Manual) 0.5 K/mm3 (1.2-5.4) L 02/26/18 07:29 Abs React Lymphs (Man) 0.0 K/mm3 02/26/18 07:29 Monocytes # (Manual) 0.4 K/mm3 (0.0-0.8) 02/26/18 07:29 Eosinophils # (Manual) 0.0 K/mm3 (0.0-0.4) 02/26/18 07:29 Basophils # (Manual) 0.0 K/mm3 (0.0-0.1) 02/26/18 07:29 Metamyelocytes # 0.0 K/mm3 02/26/18 07:29 Myelocytes # 0.0 K/mm3 02/26/18 07:29 Promyelocytes # 0.1 K/mm3 02/26/18 07:29 Blast Cells # 0.0 K/mm3 02/26/18 07:29 WBC Morphology Not Reportable 02/26/18 07:29 Hypersegmented Neuts Not Reportable 02/26/18 07:29 Hyposegmented Neuts Not Reportable 02/26/18 07:29 Hypogranular Neuts Not Reportable 02/26/18 07:29 Smudge Cells Not Reportable 02/26/18 07:29 Toxic Granulation Not Reportable 02/26/18 07:29 Toxic Vacuolation Not Reportable 02/26/18 07:29 Dohle Bodies Not Reportable 02/26/18 07:29 Pelger-Huet Anomaly Not Reportable 02/26/18 07:29 Juan Jose Rods Not Reportable 02/26/18 07:29 Platelet Estimate Consistent w auto 02/26/18 07:29 Clumped Platelets Not Reportable 02/26/18 07:29 Plt Clumps, EDTA Not Reportable 02/26/18 07:29 Large Platelets Not Reportable 02/26/18 07:29 Giant Platelets Not Reportable 02/26/18 07:29 Platelet Satelliting Not Reportable 02/26/18 07:29 Plt Morphology Comment Not Reportable 02/26/18 07:29 RBC Morphology Not Reportable 02/26/18 07:29 Dimorphic RBCs Not Reportable 02/26/18 07:29 Polychromasia Not Reportable 02/26/18 07:29 Hypochromasia 2+ 02/26/18 07:29 Poikilocytosis 1+ 02/26/18 07:29 Anisocytosis 1+ 02/26/18 07:29 Microcytosis 2+ 02/26/18 07:29 Macrocytosis Not Reportable 02/26/18 07:29 Spherocytes Not Reportable 02/26/18 07:29 Pappenheimer Bodies Not Reportable 02/26/18 07:29 Sickle Cells Not Reportable 02/26/18 07:29 Target Cells Few 02/26/18 07:29 Tear Drop Cells Not Reportable 02/26/18 07:29 Ovalocytes Few 02/26/18 07:29 Helmet Cells Not Reportable 02/26/18 07:29 [place] Bodies Not Reportable 02/26/18 07:29 [place] Rings Not Reportable 02/26/18 07:29 [place] Cells Not Reportable 02/26/18 07:29 Bite Cells Not Reportable 02/26/18 07:29 Crenated Cell Not Reportable 02/26/18 07:29 Elliptocytes Few 02/26/18 07:29 Acanthocytes (Spur) Not Reportable 02/26/18 07:29 Rouleaux Not Reportable 02/26/18 07:29 Hemoglobin C Crystals Not Reportable 02/26/18 07:29 Schistocytes Rare 02/26/18 07:29 Malaria parasites Not Reportable 02/26/18 07:29 [place] Bodies Not Reportable 02/26/18 07:29 Hem Pathologist Commnt No 02/26/18 07:29 PT 15.4 Sec. (12.2-14.9) H 02/26/18 07:29 INR 1.16 (0.87-1.13) H 02/26/18 07:29 APTT 31.0 Sec. (24.2-36.6) 02/26/18 07:29 Sodium 137 mmol/L (137-145) 02/27/18 04:58 Potassium 4.4 mmol/L (3.6-5.0) 02/27/18 04:58 Chloride 95.0 mmol/L (98-107) L 02/27/18 04:58 Carbon Dioxide 31 mmol/L (22-30) H 02/27/18 04:58 Anion Gap 15 mmol/L 02/27/18 04:58 BUN 30 mg/dL (9-20) H 02/27/18 04:58 Creatinine 7.1 mg/dL (0.8-1.5) H 02/27/18 04:58 Estimated GFR 10 ml/min 02/27/18 04:58 BUN/Creatinine Ratio 4 % 02/27/18 04:58 Glucose 79 mg/dL (75-100) 02/27/18 04:58 POC Glucose 97 (70-105) 02/27/18 11:11 Lactic Acid 0.80 mmol/L (0.7-2.0) 02/26/18 07:29 Calcium 8.7 mg/dL (8.4-10.2) 02/27/18 04:58 Total Bilirubin 0.70 mg/dL (0.1-1.2) 02/26/18 07:29 AST 16 units/L (5-40) 02/26/18 07:29 ALT 14 units/L (7-56) 02/26/18 07:29 Alkaline Phosphatase 92 units/L (35-129) 02/26/18 07:29 Total Protein 7.4 g/dL (6.3-8.2) 02/26/18 07:29 Albumin 4.0 g/dL (3.9-5) 02/26/18 07:29 Albumin/Globulin Ratio 1.2 % 02/26/18 07:29 Hepatitis A IgM Ab Non-reactive (NonReactive) 02/26/18 18:27 Hep Bs Antigen Non-reactive (Negative) 02/26/18 Hep B Core IgM Ab Non-reactive (NonReactive) 02/26/18: Hepatitis C Antibody Non-reactive (NonReactive) 02/26/18 18:
[2018-02-27 21:30] LABS: Bilirubin,Urine NEG (Negative); Blood,Urine NEG (Negative); Color,Urine Yellow (Yellow); Mucus,Urine FEW /HPF; Urobilinogen,Urine < 2.0 mg/dL (<2.0)
[2018-02-28] MEDS: HumaLOG SUB-Q SCH ×4 (08:40→21:56)
[2018-02-28] MEDS: COREG PO SCH ×2 (09:37→21:55)
[2018-02-28] MEDS: RENVELA PO SCH ×3 (09:37→16:48)
[2018-02-28] MEDS: HALFPRIN EC PO SCH (09:37)
[2018-02-28] MEDS: APRESOLINE PO SCH ×3 (09:38→21:55)
[2018-02-28] MEDS: SENSIPAR PO SCH (09:38)
[2018-02-28] MEDS: LONITEN PO SCH ×2 (09:38→21:56)
--- NOTE | 2018-02-28 10:54 | Progress Note ---
Assessment and Plan Impression: * ESRD on HD MWF * Hypoglycemia - resolved * Hyperkalemia - resolved * Hypertension * Hyponatremia, mild * Anemia secondary to ESRD * Secondary hyperparathyroidism Plan: * Continue MWF HD schedule * UF as tolerated * Continue antiHTN medications * Epogen TIW prn * Renal diet * Binders with meals Subjective Date of service: 02/28/18 Interval history: Patient has no complaints this AM Objective - Vital Signs Vital signs: Vital Signs - 12hr 02/27/18 02/28/18 02/28/18 23:01 05:38 09:37 Temperature 99.3 F 98.8 F Pulse Rate 80 82 Respiratory 18 18 Rate Blood Pressure 137/71 141/71 133/71 O2 Sat by Pulse 97 95 Oximetry - General Appearance General appearance: well-developed, well-nourished EENT: ATNC Respiratory: Present: Clear to Ascultation Cardiology: regular, S1S2 Gastrointestinal: normal, no tenderness, no distended Musculoskeletal: other (no edema) Psychiatric: cooperative - Lab 02/27/18 04:58 02/27/18 04:58 Most recent lab results Calcium 8.7 mg/dL (8.4-10.2) 02/27/18 04:58
--- NOTE | 2018-02-28 13:00 | Progress Note ---
Assessment and Plan Assessment and plan: Mr. Nunez is a 52 yo man from [facility] with a history of ESRD on hemodialysis MWF, hypertersion, AOCD, Diastolic dysfunction with estimated EF 55 -60%, moderate pulmonary hypertension, moderate pericardial effusion on 2D ECHO done on 01/04/15 and IDDM type 2 who presents to [facility] via EMS for AMS, lethargy due to hypoglycemia. He takes 10 units of Lantus at night but he is unsure how much Lantus he was given last night. He was given Glucagon prior to arrival and blood glucose keeps dropping, hence the admission. He is from [place], [place] and has been in the area for approximately 2 years. He was recently admitted to [facility] and sent to [facility]. He has been in the [place] for 1-2 weeks now. -AMS due to acute metabolic encephalopathy from hypoglycemia: hold Lantus, continue d5 additive solution, careful with ESRD -Hypoglycemia most likely from the Lantus: bg 70 without any drips. -ESRD needing hemodialysis: Nephrology consulted -Hyperkalemia: HD should help, repeat bmp am -AOCD: continue hemodialysis, repeat cbc -IDDM type 2: add ssi, hold lantus, accucheck q4hrs, renal diet -DVT prophylaxis: sq heparin -Advance care planning: full code, he doesn't want estranged to make any decision from him, he wants sister Terry Disposition: continue inpatient care, if blood glucose is above 70 will d/c back to [facility] tomorrow. History Interval history: Patient was seen and examined. Follow-up on current diagnosis of hypoglycemia. Overnight uneventful. Patient denies any chest pain, shortness breath, nausea/ vomiting or severe headaches. Imaging, nursing note, chart, labs and old chart reviewed. Discussed with patient. Hospitalist Physical - Physical exam Narrative exam: GEN: WDWN, NAD, Awake, Alert, Orientated x 3 HEENT: NCAT, EOMI, PERRL, OP Clear NECK: supple, no adenopathy, no thyromegaly, no JVD CVS/HEART: RRR, normal S1S2, pulses present bilaterally CHEST/LUNGS: diminished bs bilateral, Symmetrical chest expansion, good air entry bilaterally GI/Abdomen: soft, NTND, good bowel sounds, no guarding or rebound /Bladder: no suprapubic tenderness, no CVA or paraspinal tenderness EXT/Skin: ble leg edema, no obvious rash MSK: FROM x 4 Neuro: CN 2-12 grossly intact, no new focal deficits Psych: calm - Constitutional Vitals: Temp Pulse Resp BP Pulse Ox 97.9 F 83 18 132/55 97 02/28/18 11:40 02/28/18 11:40 02/28/18 11:40 02/28/18 11:40 02/28/18 11:40 Results - Labs CBC & Chem 7: 02/27/18 04:58 02/27/18 04:58 Labs: Laboratory Last Values WBC 2.4 K/mm3 (4.5-11.0) L 02/27/18 04:58 RBC 4.18 M/mm3 (3.65-5.03) 02/27/18 04:58 Hgb 8.0 gm/dl (11.8-15.2) L 02/27/18 04:58 Hct 25.5 % (35.5-45.6) L 02/27/18 04:58 MCV 61 fl (84-94) L 02/27/18 04:58 MCH 19 pg (28-32) L 02/27/18 04:58 MCHC 31 % (32-34) L 02/27/18 04:58 RDW 23.3 % (13.2-15.2) H 02/27/18 04:58 Plt Count 137 K/mm3 (140-440) L 02/27/18 04:58 Lymph % (Auto) [employer] Manager 02/26/18 07:29 Baso % (Auto) [employer] Manager 02/26/18 07:29 Add Manual Diff Complete 02/26/18 07:29 Total Counted 100 02/26/18 07:29 Seg Neutrophils % [employer] Manager 02/26/18 07:29 Seg Neuts % (Manual) 83.0 % (40.0-70.0) H 02/26/18 07:29 Band Neutrophils % 0 % 02/26/18 07:29 Lymphocytes % (Manual) 9.0 % (13.4-35.0) L 02/26/18 07:29 Reactive Lymphs % (Man) 0 % 02/26/18 07:29 Monocytes % (Manual) 7.0 % (0.0-7.3) 02/26/18 07:29 Eosinophils % (Manual) 0 % (0.0-4.3) 02/26/18 07:29 Basophils % (Manual) 0 % (0.0-1.8) 02/26/18 07:29 Metamyelocytes % 0 % 02/26/18 07:29 Myelocytes % 0 % 02/26/18 07:29 Promyelocytes % 1.0 % 02/26/18 07:29 Blast Cells % 0 % 02/26/18 07:29 Nucleated RBC % Not Reportable 02/26/18 07:29 Seg Neutrophils # Man 4.3 K/mm3 (1.8-7.7) 02/26/18 07:29 Band Neutrophils # 0.0 K/mm3 02/26/18 07:29 Lymphocytes # (Manual) 0.5 K/mm3 (1.2-5.4) L 02/26/18 07:29 Abs React Lymphs (Man) 0.0 K/mm3 02/26/18 07:29 Monocytes # (Manual) 0.4 K/mm3 (0.0-0.8) 02/26/18 07:29 Eosinophils # (Manual) 0.0 K/mm3 (0.0-0.4) 02/26/18 07:29 Basophils # (Manual) 0.0 K/mm3 (0.0-0.1) 02/26/18 07:29 Metamyelocytes # 0.0 K/mm3 02/26/18 07:29 Myelocytes # 0.0 K/mm3 02/26/18 07:29 Promyelocytes # 0.1 K/mm3 02/26/18 07:29 Blast Cells # 0.0 K/mm3 02/26/18 07:29 WBC Morphology Not Reportable 02/26/18 07:29 Hypersegmented Neuts Not Reportable 02/26/18 07:29 Hyposegmented Neuts Not Reportable 02/26/18 07:29 Hypogranular Neuts Not Reportable 02/26/18 07:29 Smudge Cells Not Reportable 02/26/18 07:29 Toxic Granulation Not Reportable 02/26/18 07:29 Toxic Vacuolation Not Reportable 02/26/18 07:29 Dohle Bodies Not Reportable 02/26/18 07:29 Pelger-Huet Anomaly Not Reportable 02/26/18 07:29 Juan Jose Rods Not Reportable 02/26/18 07:29 Platelet Estimate Consistent w auto 02/26/18 07:29 Clumped Platelets Not Reportable 02/26/18 07:29 Plt Clumps, EDTA Not Reportable 02/26/18 07:29 Large Platelets Not Reportable 02/26/18 07:29 Giant Platelets Not Reportable 02/26/18 07:29 Platelet Satelliting Not Reportable 02/26/18 07:29 Plt Morphology Comment Not Reportable 02/26/18 07:29 RBC Morphology Not Reportable 02/26/18 07:29 Dimorphic RBCs Not Reportable 02/26/18 07:29 Polychromasia Not Reportable 02/26/18 07:29 Hypochromasia 2+ 02/26/18 07:29 Poikilocytosis 1+ 02/26/18 07:29 Anisocytosis 1+ 02/26/18 07:29 Microcytosis 2+ 02/26/18 07:29 Macrocytosis Not Reportable 02/26/18 07:29 Spherocytes Not Reportable 02/26/18 07:29 Pappenheimer Bodies Not Reportable 02/26/18 07:29 Sickle Cells Not Reportable 02/26/18 07:29 Target Cells Few 02/26/18 07:29 Tear Drop Cells Not Reportable 02/26/18 07:29 Ovalocytes Few 02/26/18 07:29 Helmet Cells Not Reportable 02/26/18 07:29 Centeno-Sherando Bodies Not Reportable 02/26/18 07:29 Glendale Rings Not Reportable 02/26/18 07:29 Donnell Cells Not Reportable 02/26/18 07:29 Bite Cells Not Reportable 02/26/18 07:29 Crenated Cell Not Reportable 02/26/18 07:29 Elliptocytes Few 02/26/18 07:29 Acanthocytes (Spur) Not Reportable 02/26/18 07:29 Rouleaux Not Reportable 02/26/18 07:29 Hemoglobin C Crystals Not Reportable 02/26/18 07:29 Schistocytes Rare 02/26/18 07:29 Malaria parasites Not Reportable 02/26/18 07:29 Jordan Bodies Not Reportable 02/26/18 07:29 Hem Pathologist Commnt No 02/26/18 07:29 PT 15.4 Sec. (12.2-14.9) H 02/26/18 07:29 INR 1.16 (0.87-1.13) H 02/26/18 07:29 APTT 31.0 Sec. (24.2-36.6) 02/26/18 07:29 Sodium 137 mmol/L (137-145) 02/27/18 04:58 Potassium 4.4 mmol/L (3.6-5.0) 02/27/18 04:58 Chloride 95.0 mmol/L (98-107) L 02/27/18 04:58 Carbon Dioxide 31 mmol/L (22-30) H 02/27/18 04:58 Anion Gap 15 mmol/L 02/27/18 04:58 BUN 30 mg/dL (9-20) H 02/27/18 04:58 Creatinine 7.1 mg/dL (0.8-1.5) H 02/27/18 04:58 Estimated GFR 10 ml/min 02/27/18 04:58 BUN/Creatinine Ratio 4 % 02/27/18 04:58 Glucose 79 mg/dL (75-100) 02/27/18 04:58 POC Glucose 114 (70-105) H 02/28/18 11:37 Lactic Acid 0.80 mmol/L (0.7-2.0) 02/26/18 07:29 Calcium 8.7 mg/dL (8.4-10.2) 02/27/18 04:58 Total Bilirubin 0.70 mg/dL (0.1-1.2) 02/26/18 07:29 AST 16 units/L (5-40) 02/26/18 07:29 ALT 14 units/L (7-56) 02/26/18 07:29 Alkaline Phosphatase 92 units/L (35-129) 02/26/18 07:29 Total Protein 7.4 g/dL (6.3-8.2) 02/26/18 07:29 Albumin 4.0 g/dL (3.9-5) 02/26/18 07:29 Albumin/Globulin Ratio 1.2 % 02/26/18 07:29 Urine Color Yellow (Yellow) 02/27/18 Unknown Urine Turbidity Clear (Clear) 02/27/18 Unknown Urine pH 8.0 (5.0-7.0) H 02/27/18 Unknown Ur Specific Adel 1.009 (1.003-1.030) 02/27/18 Unknown Urine Protein 100 mg/dl mg/dL (Negative) 02/27/18 Unknown Urine Glucose (UA) 50 mg/dL (Negative) 02/27/18 Unknown Urine Ketones Neg mg/dL (Negative) 02/27/18 Unknown Urine Blood Neg (Negative) 02/27/18 Unknown Urine Nitrite Neg (Negative) 02/27/18 Unknown Urine Bilirubin Neg (Negative) 02/27/18 Unknown Urine Urobilinogen < 2.0 mg/dL (<2.0) 02/27/18 Unknown Ur Leukocyte Esterase Lg (Negative) 02/27/18 Unknown Urine WBC (Auto) 3.0 /HPF (0.0-6.0) 02/27/18 Unknown Urine RBC (Auto) 5.0 /HPF (0.0-6.0) 02/27/18 Unknown Urine Mucus Few /HPF 02/27/18 Unknown Hepatitis A IgM Ab Non-reactive (NonReactive) 02/26/18 18: Hep Bs Antigen Non-reactive (Negative) 02/26/18 18: Hep B Core IgM Ab Non-reactive (NonReactive) 02/26/18 18: Hepatitis C Antibody Non-reactive (NonReactive) 02/26/18 18:
--- NOTE | 2018-03-01 07:49 | Discharge Summary ---
Providers - Providers Date of Admission: 02/26/18 09:53 Date of discharge: 03/01/18 Attending physician: EMILY DOSS 02/26/18 09:56 Consult to Physician [CONS] Routine Comment: DR BANDA NOTIFIED [id number] Consulting Provider: KADEN BANDA Physician Instructions: Reason For Exam: hd esrd 02/26/18 13:18 Consult to Case Management [CONS] Routine Services Needed at Discharge: Timber Trimmer Notified:: COPY GIVEN TO CM Additional Physician Instructions: SNF Placement as per family request: Please send out [facility]. Physical Therapy Evaluation and Treat [CONS] Routine Comment: Reason For Exam: gait evaluation/ambulatory dysfunction 02/27/18 16:03 Consult to Physician [CONS] Routine Comment: Consulting Provider: CITLALI TIJERINA Physician Instructions: Reason For Exam: pancytopenia Hospitalization Condition: Stable Hospital course: Mr. Nunez is a 52 yo man from [facility] with a history of ESRD on hemodialysis MWF, hypertersion, AOCD, Diastolic dysfunction with estimated EF 55 -60%, moderate pulmonary hypertension, moderate pericardial effusion on 2D ECHO done on 01/04/15 and IDDM type 2 who presents to [facility] via EMS for AMS, lethargy due to hypoglycemia. He takes 10 units of Lantus at night but he is unsure how much Lantus he was given last night. He was given Glucagon prior to arrival and blood glucose keeps dropping, hence the admission. He is from [place], [place] and has been in the area for approximately 2 years. He was recently admitted to [facility] and sent to [facility]. He has been in the [place] for 1-2 weeks now. -AMS due to acute metabolic encephalopathy from hypoglycemia: hold Lantus, continue d5 additive solution, careful with ESRD -Hypoglycemia most likely from the Lantus, stable, off dextrose, use SSI going forward because lantus clearance longer with ESRD so risk of hypoglycemia is high -ESRD needing hemodialysis: Nephrology consulted -Hyperkalemia: HD should help, repeat bmp am -AOCD: continue hemodialysis, repeat cbc -IDDM type 2: add ssi, hold lantus, accucheck q4hrs, renal diet -DVT prophylaxis: sq heparin -Advance care planning: full code, he doesn't want estranged to make any decision from him, he wants sister Terry Disposition: back to [place] after hemodialysis Disposition: [id number] SNF [facility] Time spent for discharge: 35 minutes Core Measure Documentation - Palliative Care Palliative Care/ Comfort Measures: Not Applicable - Core Measures Any of the following diagnoses?: none - VTE Discharge Requirements Deep Vein Thrombosis/Pulmonary Embolism Present on Admission: No Has pt received <5 days of overlap therapy or INR<2.0: No Anticoagulant overlap therapy prescribed at discharge: No Contraindication No Overlap Therapy order at DC: Not Indicated Exam - Physical Exam Narrative exam: GEN: WDWN, NAD, Awake, Alert, Orientated x 3 HEENT: NCAT, EOMI, PERRL, OP Clear NECK: supple, no adenopathy, no thyromegaly, no JVD CVS/HEART: RRR, normal S1S2, pulses present bilaterally CHEST/LUNGS: diminished bs bilateral, Symmetrical chest expansion, good air entry bilaterally GI/Abdomen: soft, NTND, good bowel sounds, no guarding or rebound /Bladder: no suprapubic tenderness, no CVA or paraspinal tenderness EXT/Skin: ble leg edema, no obvious rash MSK: FROM x 4 Neuro: CN 2-12 grossly intact, no new focal deficits Psych: calm - Constitutional Vitals: Temp Pulse Resp BP Pulse Ox 98.7 F 80 18 128/66 97 03/01/18 05:58 03/01/18 05:58 03/01/18 05:58 03/01/18 05:58 03/01/18 05:58 Plan Activity: up only with assistance, fall precautions, other (no strenous activities until cleared by PCP) Diet: renal Follow up with: SAM ALLEN [Other] - 7 Days Prescriptions: Lispro Insulin [Humalog] 1 dose SUB-Q ACHS PRN #100 units PRN Reason: Hyperglycemia
[2018-03-01] MEDS: HumaLOG SUB-Q SCH ×3 (08:09→16:30)
[2018-03-01] MEDS: RENVELA PO SCH ×3 (08:12→17:02)
[2018-03-01] MEDS: APRESOLINE PO SCH ×2 (08:13→14:00)
--- NOTE | 2018-03-01 10:39 | Progress Note ---
Assessment and Plan Impression: * ESRD on HD MWF * Hypoglycemia - resolved * Hyperkalemia - resolved * Hypertension * Hyponatremia, mild * Anemia secondary to ESRD * Secondary hyperparathyroidism Plan: * Continue MWF HD schedule * UF as tolerated * Continue antiHTN medications * Epogen TIW prn * Renal diet * Binders with meals Subjective Date of service: 03/02/18 Principal diagnosis: esrd Interval history: resting in bed today Objective - Exam Narrative Exam: General appearance: well-developed, well-nourished EENT: ATNC Respiratory: Present: Clear to Ascultation Cardiology: regular, S1S2 Gastrointestinal: normal, no tenderness, no distended Musculoskeletal: other (no edema) Psychiatric: cooperative - Vital Signs Vital signs: Vital Signs - 12hr 03/01/18 03/01/18 05:58 08:13 Temperature 98.7 F Pulse Rate 80 78 Respiratory 18 18 Rate Blood Pressure 128/66 Blood Pressure 169/76 [Right] O2 Sat by Pulse 97 Oximetry - Lab 02/27/18 04:58 02/27/18 04:58 Most recent lab results Calcium 8.7 mg/dL (8.4-10.2) 02/27/18 04:58
[2018-03-01] MEDS ORDERED: NACL 0.9 (PRIMING MACHINE ONLY DIALYSIS) MC ONE (14:31)
[2018-03-01] MEDS: COREG PO SCH (16:59)
[2018-03-01] MEDS: HALFPRIN EC PO SCH (16:59)
[2018-03-01] MEDS: LONITEN PO SCH (17:00)
[2018-03-01] MEDS: SENSIPAR PO SCH (17:00)
[2018-03-01 18:37] VITALS: BP 136/69
== END 2018-03-01 18:15 | DRG 637 ==
LOC: ED 07:18 → 3A 09:53 → OBSVTOIN 03-01 12:10
PROVIDERS: ADMIT Internal Medicine; ATTEND Internal Medicine
PROC: 5A1D70Z Performance of Urinary Filtration, Intermittent, Less than 6 Hours Per Day (ICD-10-PCS; 2018-02-26)
PROC: 5A1D70Z Performance of Urinary Filtration, Intermittent, Less than 6 Hours Per Day (ICD-10-PCS; principal; 2018-03-01)
DX: E11.649 Type 2 diabetes mellitus with hypoglycemia without coma (principal); G93.41 Metabolic encephalopathy; E87.1 Hypo-osmolality and hyponatremia; I12.0 Hypertensive chronic kidney disease with stage 5 chronic kidney disease or end stage renal disease; N18.6 End stage renal disease; N25.81 Secondary hyperparathyroidism of renal origin; E87.5 Hyperkalemia; E11.22 Type 2 diabetes mellitus with diabetic chronic kidney disease; D63.1 Anemia in chronic kidney disease; T38.3X5A Adverse effect of insulin and oral hypoglycemic [antidiabetic] drugs, initial encounter; Y92.89 Other specified places as the place of occurrence of the external cause; Z79.82 Long term (current) use of aspirin; Z79.899 Other long term (current) drug therapy; Z79.4 Long term (current) use of insulin
CPT/HCPCS: 36415; 80048; 80053; 80074; 81001; 82140; 82962; 85007; 85025; 85027; 85610; 85730; 87116; G0378; J0885; J1815; J7030